=== PATIENT | male | born 1995 | race Caucasian/White ===

== ENCOUNTER 2023-01-08 11:15 | Emergency (ER) | payer OTHER, SELFPAY ==
[2023-01-08 11:25] VITALS: BP 180/100; PULSE 80; RESP 19; TEMP 36.4; O2SAT 99; BMI 34.0
--- NOTE | 2023-01-08 12:17 | DI.CT.S_ITS ---
PROCEDURE: CT PELVIS W CON INDICATIONS: anorectal abscess TECHNIQUE: After the administration of intravenous contrast, 5 mm thick sections acquired from the iliac crests to the symphysis. 5 mm coronal and sagittal reformats were acquired. For radiation dose reduction, the following was used: automated exposure control, adjustment of mA and/or kV according to patient size. COMPARISON: None. FINDINGS: Distal ileal wall thickening and mucosal hyperenhancement with adjacent fat stranding and engorged Vasa recta involving approximately 15 cm the distal ileum. Remaining partially visualized bowel within normal limits. No free fluid or free air. Approximately 3 cm focus of left perineal fat stranding without organized fluid collection. No obvious fistulous tract with the anal canal identified. IMPRESSION: Approximately 3 cm focus of left perineal subcutaneous fat stranding without discrete abscess or fluid collection identified. Findings would be consistent with an anorectal abscess in the appropriate clinical setting. Distal ileal inflammation consistent with acute inflammatory bowel disease. Dictated by: Peewee Morales M.D. on 01/08/2023 at 14:08 Approved by: Peewee Morales M.D. on 01/08/2023 at 14:10
--- NOTE | 2023-01-08 12:26 | ED.SKABFB ---
HPI - Skin/Abscess/Foreign Bdy <Tri Eli PA-C - Last Filed: 01/08/23 14:39> General Chief complaint: Skin/Abscess/Foreign Body Stated complaint: cyst / pilonidal cyst Time Seen by Provider: 01/08/23 11:44 Source: patient Mode of arrival: Ambulatory Limitations: no limitations History of Present Illness HPI narrative: 27-year-old male with no reported past medical history presents to the ED with 10 days of painful abscess/cyst in the rectal area. Patient denies previous history of pilonidal cysts. Patient endorses prior history of hemorrhoids once, however has not had trouble with it ever since. Patient denies fever, chills, nausea, vomiting, purulent discharge from the abscess. Patient states that he did notice some blood when he wiped after a bowel movement. Patient was seen at the [facility], was sent to the ED for further evaluation, given proximity of the abscess to the rectum. Related Data Previous Rx's Medication Instructions Recorded ciprofloxacin HCl 500 mg tablet 500 mg PO Q12H 5 days #10 tabs 01/08/23 (Cipro) metronidazole 500 mg tablet 500 mg PO Q8H 5 days #15 tabs 01/08/23 Allergies Allergy/AdvReac Type Severity Reaction Status Date / Time No Known Drug Allergies Allergy Verified 01/08/23 11:27 Review of Systems <Tri Eli PA-C - Last Filed: 01/08/23 14:39> Review of Systems ROS Unobtainable: All systems reviewed & are unremarkable except as noted in HPI and below Constitutional Constitutional: Denies chills, Denies fatigue, Denies fever(s), Denies frequent falls, Denies lethargy and Denies weakness Eyes Eyes: Denies change in vision, Denies eye discharge, Denies irritation and Denies loss of vision ENT Ears, Nose, Mouth, and Throat: Denies change in voice, Denies dizziness, Denies neck pain, Denies sore throat and Denies throat swelling Cardiovascular Cardiovascular: Denies chest pain, Denies irregular heart rhythm, Denies lightheadedness, Denies palpitations, Denies dyspnea, Denies dyspnea on exertion and Denies orthopnea Respiratory Respiratory: Denies cough, Denies dyspnea, Denies dyspnea on exertion and Denies wheezing Gastrointestinal Gastrointestinal: Denies abdominal pain, Denies change in bowel habits, Denies diarrhea, Denies nausea and Denies vomiting Comments: Cyst/abscess in the rectal area Genitourinary Genitourinary: Denies hematuria, Denies flank pain, Denies urinary incontinence and Denies urinary urgency Musculoskeletal Musculoskeletal: Denies back pain, Denies muscle weakness, Denies neck pain, Denies numbness and Denies tingling Integumentary/Breasts Skin/Breast: Denies pruritus, Denies erythema, Denies rash and Denies wounds Neurologic Neurologic: Denies behavioral changes, Denies confusion, Denies dizziness, Denies frequent falls, Denies loss of vision, Denies numbness, Denies tingling and Denies weakness Psychiatric Psychiatric: Denies anxiety, Denies behavioral changes, Denies confusion, Denies depression, Denies homicidal ideation and Denies suicidal ideation Endocrine Endocrine: Denies fatigue, Denies flushing and Denies palpitations Hematologic/Lymphatic Hematologic/Lymphatic: Denies easy bruising Allergic/Immunologic Allergic/Immunologic: Denies urticaria, Denies throat swelling and Denies wheezing Patient History <Tri Eli PA-C - Last Filed: 01/08/23 14:39> Medical History Smoker Social History Smoking Status: Current every day smoker Smoking Status: Current every day smoker alcohol intake frequency: 0-2 drinks per day Substance Use Type: does not use Exam <Tri Eli PA-C - Last Filed: 01/08/23 14:39> Narrative Exam Narrative: Const General:?cooperative, healthy appearing and comfortable [facility] Head:?normal to inspection Ears:?hearing grossly normal bilaterally Nose:?external nose normal Face and sinus:?normal facial exam and sinuses nontender Mouth:?oral mucosae normal Throat:?posterior oropharynx normal Eyes General:?appearance normal, both eyes and all related structures Neck Neck:?normal visual inspection and no lymphadenopathy noted Resp Effort & Inspection:?normal respiratory effort Auscultation:?clear to auscultation bilaterally Cardio Rate:?regular rate Rhythm:?regular rhythm GI Abdomen is soft, nondistended to palpation. There is a 2cm area of erythema, fluctuance that is lateral but close to the rectum on the left side. No purulence or bleeding noted on exam. Very tender to palpation. Neuro General:?patient alert, patient awake and patient oriented x3 Initial Vital Signs Initial Vital Signs: Vital Signs Temperature 97.5 F L 01/08/23 11:25 Pulse Rate 80 01/08/23 11:25 Respiratory Rate 19 01/08/23 11:25 Blood Pressure 180/100 H 01/08/23 11:25 Pulse Oximetry 99 01/08/23 11:25 Oxygen Delivery Method 01/08/23 11:25 <Russ Conner DO - Last Filed: 01/09/23 08:25> Initial Vital Signs Initial Vital Signs: Vital Signs Temperature 97.5 F L 01/08/23 11:25 Pulse Rate 80 01/08/23 11:25 Respiratory Rate 19 01/08/23 11:25 Blood Pressure 180/100 H 01/08/23 11:25 Pulse Oximetry 99 01/08/23 11:25 Oxygen Delivery Method 01/08/23 11:25 Course <Tri Eli PA-C - Last Filed: 01/08/23 14:39> Orders Ordered: Discontinued Medications Ketorolac Tromethamine (Ketorolac 30 Mg/Ml Vial) 15 mg IV NOW ONE Stop: 01/08/23 12:20 Last Admin: 01/08/23 12:30 Dose: 15 mg Documented By: AMU Vital Signs Vital signs: Vital Signs - 8 hr 01/08/23 11:25 01/08/23 12:55 01/08/23 12:55 Temperature 97.5 F L Pulse Rate 80 83 Respiratory Rate 19 Blood Pressure 180/100 H 130/80 Pulse Oximetry 99 99 Oxygen Delivery Method Room Air <Russ Conner DO - Last Filed: 01/09/23 08:25> Orders Ordered: Discontinued Medications Ketorolac Tromethamine (Ketorolac 30 Mg/Ml Vial) 15 mg IV NOW ONE Stop: 01/08/23 12:20 Last Admin: 01/08/23 12:30 Dose: 15 mg Documented By: AMU Vital Signs Vital signs: Vital Signs - 8 hr 01/08/23 11:25 01/08/23 12:55 01/08/23 12:55 Temperature 97.5 F L Pulse Rate 80 83 Respiratory Rate 19 Blood Pressure 180/100 H 130/80 Pulse Oximetry 99 99 Oxygen Delivery Method Room Air MDM - Skin/Abscess/Foreign Bdy <Tri Eli PA-C - Last Filed: 01/08/23 14:39> Lab Data 01/08/23 12:25 01/08/23 12:25 Labs: Lab Results 01/08/23 01/08/23 01/08/23 Range/Units 12:25 12:25 12:25 WBC 9.1 (4.5-11.0) X10^3/uL RBC 4.97 (4.5-5.9) X10^6/uL Hgb 14.8 (13.5-17.5) g/dL Hct 43.0 (41-53) % MCV 86.6 (80-100) fL MCH 29.9 (26-34) PG MCHC 34.5 (30-36) % RDW 13.9 (11.6-14.8) % Plt Count 233 (150-400) X10^3/uL Neut % (Auto) 60.9 (50-75) % Lymph % (Auto) 24.5 L (25-40) % [place] % (Auto) 12.3 (3-14) % Eos % (Auto) 1.5 L (2-4) % Baso % (Auto) 0.8 (0-2) % Neut # (Auto) 5500 (6877-8833) /uL Lymph # (Auto) 2200 (9736-2856) /uL [place] # (Auto) 1100 H (0-900) /uL Eos # (Auto) 100 (0-450) /uL Baso # (Auto) 100 (0-100) /uL Sodium 137 (137-145) mmol/L Potassium 4.2 (3.4-5.1) mmol/L Chloride 100 (98-107) mmol/L Carbon Dioxide 30 (22-32) mmol/L BUN 11 (9-20) mg/dL Creatinine 0.89 (0.66-1.25) mg/dL Estimated GFR > 60 (>60) mL/min BUN/Creatinine Ratio 12.4 (6-22) Glucose 90 (70-100) mg/dL Lactate 0.7 (0.7-2.1) mmol/L Calcium 8.9 (8.4-10.2) mg/dL Total Bilirubin 0.5 (0.2-1.3) mg/dL AST 43 (17-59) IU/L ALT 101 H (<50) IU/L Alkaline Phosphatase 89 (38-126) U/L Total Protein 8.0 (6.3-8.2) g/dL Albumin 4.4 (3.5-5.0) g/dL Globulin 3.6 (1.7-4.1) g/dL Albumin/Globulin Ratio 1.2 (1.0-2.8) [facility] Narrative Medical decision making narrative: 27-year-old male with no reported past medical history presents to the ED with 10 days of painful abscess/cyst in the rectal area. Concern for anorectal versus perianal abscess. Will obtain labs, CT. Will give ketorolac for pain. Will reassess. Patient's pain improved with Toradol. Labs within normal limits. Normal vital signs. Patient is not septic. CT shows a 3 cm focus of left perineal subcutaneous fat stranding without discrete abscess or fluid collection, consistent with an anorectal abscess. Dr. Patel from general surgery was consulted, she recommends p.o. antibiotics Flagyl and Cipro, no other intervention at this time. Discussed findings with patient. ED return precautions were discussed with patient. He verbalized understanding. Medical records reviewed: Yes <Russ Conner, DO - Last Filed: 01/09/23 08:25> Lab Data Labs: Lab Results 01/08/23 01/08/23 01/08/23 Range/Units 12:25 12:25 12:25 WBC 9.1 (4.5-11.0) X10^3/uL RBC 4.97 (4.5-5.9) X10^6/uL Hgb 14.8 (13.5-17.5) g/dL Hct 43.0 (41-53) % MCV 86.6 (80-100) fL MCH 29.9 (26-34) PG MCHC 34.5 (30-36) % RDW 13.9 (11.6-14.8) % Plt Count 233 (150-400) X10^3/uL Neut % (Auto) 60.9 (50-75) % Lymph % (Auto) 24.5 L (25-40) % [place] % (Auto) 12.3 (3-14) % Eos % (Auto) 1.5 L (2-4) % Baso % (Auto) 0.8 (0-2) % Neut # (Auto) 5500 (5602-2671) /uL Lymph # (Auto) 2200 (4449-6249) /uL [place] # (Auto) 1100 H (0-900) /uL Eos # (Auto) 100 (0-450) /uL Baso # (Auto) 100 (0-100) /uL Sodium 137 (137-145) mmol/L Potassium 4.2 (3.4-5.1) mmol/L Chloride 100 (98-107) mmol/L Carbon Dioxide 30 (22-32) mmol/L BUN 11 (9-20) mg/dL Creatinine 0.89 (0.66-1.25) mg/dL Estimated GFR > 60 (>60) mL/min BUN/Creatinine Ratio 12.4 (6-22) Glucose 90 (70-100) mg/dL Lactate 0.7 (0.7-2.1) mmol/L Calcium 8.9 (8.4-10.2) mg/dL Total Bilirubin 0.5 (0.2-1.3) mg/dL AST 43 (17-59) IU/L ALT 101 H (<50) IU/L Alkaline Phosphatase 89 (38-126) U/L Total Protein 8.0 (6.3-8.2) g/dL Albumin 4.4 (3.5-5.0) g/dL Globulin 3.6 (1.7-4.1) g/dL Albumin/Globulin Ratio 1.2 (1.0-2.8) Discharge Plan Departure Patient Disposition: Home Clinical Impression: Perirectal abscess Instructions: DI for Anal Abscess Activity Restrictions/Additional Instructions: You were evaluated in the ED today for a rectal abscess. Your CT scan shows that you have a 3 cm perirectal abscess, which is causing your symptoms. Dr. Patel from general surgery was consulted, she recommends treatment with oral antibiotics, no other intervention necessary at this time. Please start taking your antibiotics as prescribed. If symptoms worsen, you experience fever, chills, persistent vomiting, please return to the ED for further evaluation. Prescriptions: New ciprofloxacin HCl [Cipro] 500 mg tablet 500 mg PO Q12H 5 Days Qty: 10 0RF metronidazole 500 mg tablet 500 mg PO Q8H 5 Days Qty: 15 0RF Stand Alone Forms: Patient Portal/API <Russ Conner DO - Last Filed: 01/09/23 08:25> Cosign ED Attending Cosignature Attestation: I was immediately available in the department for consultation. This documentation has been reviewed and I agree with assessment and plan. Supervised by Russ Conner DO
[2023-01-08] MEDS: KETOROLAC 30 MG/ML VIAL 15 MG IV (12:30)
[2023-01-08 12:35] LABS: Add Manual Diff / Slide Review NO; Basophils Absolute Auto 100 /uL (0-100); Basophils Percent Auto 0.8 % (0-2); Eosinophils Absolute Auto 100 /uL (0-450); Eosinophils Percent Auto 1.5 % (2-4); Hemoglobin 14.8 g/dL (13.5-17.5); Lymphocytes Absolute Auto 2200 /uL (1100-4500); Lymphocytes Percent Auto 24.5 % (25-40); Mean Corpuscular HGB Conc 34.5 % (30-36); Mean Corpuscular Hemoglobin 29.9 PG (26-34); Mean Corpuscular Volume 86.6 fL (80-100); Monocytes Absolute Auto 1100 /uL (0-900); Monocytes Percent Auto 12.3 % (3-14); Neutrophils Absolute Auto 5500 /uL (1500-7000); Neutrophils Percent Auto 60.9 % (50-75); Platelet Count 233 X10^3/uL (150-400); Red Blood Cell Count 4.97 X10^6/uL (4.5-5.9); Red Cell Distribution Width 13.9 % (11.6-14.8); White Blood Cell Count 9.1 X10^3/uL (4.5-11.0)
[2023-01-08 12:55] VITALS: BP 130/80; PULSE 83; O2SAT 99
[2023-01-08 12:59] LABS: Alanine Aminotransferase 101 IU/L (<50); Albumin 4.4 g/dL (3.5-5.0); Albumin Globulin Ratio 1.2 (1.0-2.8); Alkaline Phosphatase 89 U/L (38-126); Aspartate Aminotransferase 43 IU/L (17-59); BUN Creatinine Ratio 12.4 (6-22); Bilirubin Total 0.5 mg/dL (0.2-1.3); Blood Urea Nitrogen 11 mg/dL (9-20); Calcium 8.9 mg/dL (8.4-10.2); Carbon Dioxide 30 mmol/L (22-32); Chloride 100 mmol/L (98-107); Estimated Glomerular Filt Rate > 60 mL/min (>60); Globulin 3.6 g/dL (1.7-4.1); Glucose 90 mg/dL (70-100); HEMOLYSIS < 15 (0-50); Lactate (Lactic Acid) 0.7 mmol/L (0.7-2.1); Potassium 4.2 mmol/L (3.4-5.1); Sodium 137 mmol/L (137-145)
== END 2023-01-08 14:40 | disposition home or self-care (01) ==
PROVIDERS: Emergency Provider Student in an Organized Health Care Education/Training Program
DX: K61.1 Rectal abscess (principal)
CPT/HCPCS: 72193; 80053; 83605; 85025; 96374; 99283; 99284; J1885; Q9967

== ENCOUNTER 2023-01-17 06:56 | Day surgery (SDC) | payer OTHER, SELFPAY ==
[2023-01-17] VITALS (7 sets, daily range): BP systolic 117–145; BP diastolic 82–105; PULSE 76–101; RESP 12–19; TEMP 36.3–36.5; O2SAT 93–97; BMI 34.0
--- NOTE | 2023-01-17 | PATH_ITS ---
[facility] Accession Number: [id number] No. of containers..03 Tissue . 01 Material submitted: . PART A: small bowel - TERMINAL ILEUM BIOPSIES PART B: colon - LEFT COLON BIOPSY PART C: rectum - RECTAL BIOPSIES . 01 Diagnosis: A. Terminal Ileum, Biopsies: Active enteritis with erosion and architectural distortion; please see comment. Negative for granulomas, dysplasia or malignancy. . B. Left Colon, Biopsy: Mild active colitis. Negative for granulomas, dysplasia or malignancy. . C. Rectum, Biopsies: Colonic mucosa with nonnecrotizing granuloma. Negative for active inflammation, dysplasia or malignancy. [facility] 01/23/2023 1451 Local . 01 Comment: The overall histologic findings would support a clinical impression of Crohn's disease, particularly if other etiologies of chronic injury are excluded. . 01 Electronically signed: . Michael Barrow MD, PhD, Pathologist NPI- [id number] . 01 Gross description: . Part A: TERMINAL ILEUM BIOPSIES: Received in formalin are 4 fragment(s) of carballo, soft tissue measuring 0.1 x 0.1 x 0.1 cm to 0.3 x 0.2 x 0.2 cm submitted entirely in 1 cassette(s) Part B: LEFT COLON BIOPSY: Received in formalin are 2 fragment(s) of carballo, soft tissue measuring 0.1 x 0.1 x 0.1 cm to 0.2 x 0.2 x 0.2 cm submitted entirely in 1 cassette(s) Part C: RECTAL BIOPSIES: Received in formalin are 2 fragment(s) of carballo, soft tissue measuring 0.1 x 0.1 x 0.1 cm to 0.3 x 0.1 x 0.1 cm submitted entirely in 1 cassette(s) /CARINA 01/18/[address] [place] [address] . 01 Pathologist provided ICD-10: R93.3, K61.1, K52.9 . 01 CPT . 559402, 139965, 712230 Specimen Comment: A courtesy copy of this report has been sent to [phone] Performed at: 01 [facility] [address] [place] [address], [place], [place] [id number] MD Talat Hanson MD Phone: [phone]
[2023-01-17] MEDS: LACTATED RINGERS 1,000 ML 42 ML IV (07:37)
--- NOTE | 2023-01-17 08:11 | PM.PREOP ---
Pre-operative Note COVID-19 COVID-19 status: Negative Interval Note History & Physical reviewed/Exam performed by Physician: Yes Changes to H&P: No ASA Class (for procedural sedation): I (1)
--- NOTE | 2023-01-17 08:12 | PM.OP.COLON ---
Operative Date/Time/Diagnoses Date of procedure: 01/17/23 Pre-op diagnosis: See indication and findings Procedure & Clinicians Study performed: Colonoscopy Indications: History of perirectal abscess with CT scan showing thickening of the terminal ileum rule out Crohn's disease Surgeon: Tara Rodríguez Procedure Notes Procedure in detail: After informed consent was obtained the patient was placed in left lateral decubitus position. Video colonoscope was introduced the rectum slowly advanced cecum. Ic valve was identified and intubated. On slow withdrawal mucosa was carefully examined. The scope was removed. The patient tolerated the procedure well. Blood loss none Complications none Sedation propofol Findings 1. Very abnormal terminal ileum with stenosis within 3-5 cm of the opening of the IC valve. Ulceration and inflammation was present. Biopsies were taken. 2. Scattered aphthous ulcerations throughout the colon most prominent in the left colon and rectum. Biopsies were taken in the left colon and separately in the rectum. 3. Mild diffuse inflammation in the rectum. No clear opening to the perirectal abscess was seen. Will await biopsies here but history grow most certainly has Crohn's disease. He feels as if his perirectal abscess may be returning though I can just feel a little firmness in his perirectal area. Should this worsen he is to call the general surgeons. He is having some drainage from this spot at this time. He should follow-up with Dr. Bautista as soon as possible.
[2023-01-17] MEDS: ONDANSETRON 4 MG/2 ML INJ IV (09:07)
--- NOTE | 2023-01-17 09:10 | SUR.PHASEI ---
Patient vomited clear fluid. Del KAUFMAN notified of vomiting and BP in the 140s/101s. Zofran only ordered per MD.
== END 2023-01-17 09:23 | disposition home or self-care (01) ==
PROVIDERS: PCP Student in an Organized Health Care Education/Training Program; Referring Provider Internal Medicine Gastroenterology; Visit Provider Internal Medicine Gastroenterology
PROC: 0DJD8ZZ Inspection of Lower Intestinal Tract, Via Natural or Artificial Opening Endoscopic (ICD-10-PCS; CPT 45378; principal; 2023-01-17 08:00)
DX: R93.3 Abnormal findings on diagnostic imaging of other parts of digestive tract (principal); K56.699 Other intestinal obstruction unspecified as to partial versus complete obstruction; K63.3 Ulcer of intestine; K62.89 Other specified diseases of anus and rectum; K50.10 Crohn's disease of large intestine without complications
CPT/HCPCS: 45380; 99213; J2405; J2704

== ENCOUNTER 2023-02-05 08:00 | Day surgery (SDC) | payer OTHER, SELFPAY ==
[2023-02-01 08:02] VITALS: BMI 33.0
[2023-02-05 08:11] VITALS: BP 137/92; PULSE 99; RESP 16; TEMP 36.6; O2SAT 99; BMI 33.6
[2023-02-05] MEDS: LACTATED RINGERS 1,000 ML 120 ML IV (08:32)
--- NOTE | 2023-02-05 09:28 | PM.PREOP ---
Pre-operative Note COVID-19 COVID-19 status: Not tested Interval Note History & Physical reviewed/Exam performed by Physician: Yes Changes to H&P: No ASA Class (for procedural sedation): III
--- NOTE | 2023-02-05 09:56 | SUR.OPER ---
Lithotomy on padded OR bed, head on pillow, arms secured on padded arm boards at <90 degrees abduction. Legs secured in padded yellow fins stirrups.
[2023-02-05] MEDS: BUPIVACAINE 0.25% (PF) VIAL 30 ML INJ (10:08)
[2023-02-05] MEDS: BUPIVACAINE 0.25% (PF) 30 ML, EPINEPHrine 0.15 MG INJ (10:10)
[2023-02-05 10:18] VITALS: BP 129/85; PULSE 85; RESP 16; TEMP 36.1; O2SAT 95
--- NOTE | 2023-02-05 10:21 | PM.OP.1 ---
Operative Date/Time/Diagnoses Date of procedure: 02/05/23 Time of procedure: 10:21 Pre-op diagnosis: Perirectal abscess Post-op diagnosis: same Procedure & Clinicians Procedure: Examination under anesthesia Drainage of left lateral perirectal abscess Seton placement Same procedure as scheduled: Yes Surgeon: Celio Boyd Operative Notes Procedure in detail: The patient was brought to the operating room, placed on the table in the supine position and general anesthesia was induced via LMA. No antibiotics were indicated for this incision and drainage procedure. Legs were placed in high lithotomy position. The perineum was prepped and draped in the normal fashion and a time-out was performed. There was a palpable fluctuant area in the left lateral perianal tissue not far from anal verge. There was no external opening however palpation caused pus to drain through the rectum. Next, well lubricated finger was inserted into the rectum and a retractor was inserted. The internal opening could be seen draining pus just above the dentate line in the left lateral position. We then injected about 10 mL of Marcaine with epinephrine into the skin over the fluctuant area. A 1 cm incision was created over the fluctuant area and blood and pus drained from the cavity. A finger was inserted. Once the abscess was mostly drained a blunt-tipped probe was gently inserted and easily passed through to the internal opening. The tract appeared a fairly straight line to the internal opening with minimal sphincter involvement. Next, an 0 silk suture was tied to the end of the probe and pulled through the tract. The silk was then tied to a vessel loop which was subsequently pulled through the tract and tied to itself with 2 0 silk ties. We then packed the abscess cavity with several inches of half-inch iodoform gauze. Dry 4x4s were placed over the abscess cavity. EBL: 20 mL Post-operative Condition: stable Disposition: PACU
[2023-02-05 10:23] VITALS: BP 120/80; PULSE 81; RESP 14; O2SAT 96
[2023-02-05 10:28] VITALS: BP 128/93; PULSE 78; RESP 16; O2SAT 97
[2023-02-05 10:33] VITALS: BP 136/93; PULSE 79; RESP 12; TEMP 36.2; O2SAT 97
[2023-02-05 10:40] VITALS: BP 132/94; PULSE 78; RESP 98; TEMP 36.3; O2SAT 12
== END 2023-02-05 11:15 | disposition home or self-care (01) ==
PROVIDERS: PCP Student in an Organized Health Care Education/Training Program; Referring Provider Surgery; Visit Provider Surgery
PROC: (CPT 45990; principal; 2023-02-05 09:45)
DX: K61.1 Rectal abscess (principal)
CPT/HCPCS: 46020; 10060; J0171; J2405; J2704; J3010; J3490